=== PATIENT | male | born 1960 | race Caucasian/White ===

== ENCOUNTER 2016-07-14 16:12 | Emergency (ER) | payer OTHER ==
[2016-07-14 16:30] VITALS: BP 155/90; PULSE 77; RESP 14; TEMP 98.4; O2SAT 95
--- NOTE | 2016-07-14 16:50 | EDPHY ---
H & P Stated Complaint: blood clot HPI/ROS: CHIEF COMPLAINT: leg pain, DVT HISTORY OF PRESENT ILLNESS: patient complains of being diagnosed with a DVT earlier today. He says he has had pain behind the right knee for 3-5 days. It was mild to moderate 1st. Has minimally increased, but he had moderate increase in the swelling of the leg. The swelling is most of the entire leg. Minimal erythema. No fever. No chest pain of any kind at any point. No shortness of breath of any kind at any point. No recent trauma, travel or surgery. He does have 2 family members have been diagnosed with factor 5 Leiden. He has never been worked up for this. Has no other associated complaints or modifying factors. He went to his orthopedist today and they ordered an ultrasound outpatient. He was contacted by the imaging center as a positive DVT result. He contact his primary care physician and they referred him to the emergency department. REVIEW OF SYSTEMS: Ten systems reviewed and are negative unless otherwise noted in the HPI EXAMINATION General Appearance: Alert, no distress Head: normocephalic, atraumatic Eyes: Pupils equal and round, no conjunctival pallor or injection Neck: Normal inspection, supple, non-tender Respiratory: Lungs are clear to auscultation . No wheezing, rhonchi or crackles. Cardiovascular: Regular rate and rhythm . No murmur. Pulses intact distally. Symmetric radial, DP and PT pulses all 2+. Neurological: A&O, nonfocal, normal gait Skin: Warm and dry, no rash Extremities: Tenderness to palpation of the right calf and popliteal space. There is edema to the right leg that is nonpitting. No palpable cords. Range of motion is fully intact. No pain with passive flexion of the right foot. Neurovascularly intact distal to the pain in the right popliteal fossa. Psychiatric: Mood and affect normal DIFFERENTIAL DIAGNOSES: Including but not limited to Acute DVT, DVT, chronic DVT, Haas cyst MDM: 4:40 p.m. acute DVT in the right lower extremity involving the formal, popliteal, posterior tibial and peroneal veins. He is neurovascular intact distally. Pain is minimal. Otherwise very healthy and active patient. I discussed the case with the physician on-call for his primary care physician. Dr. Plummer recommends that we start him on Xarelto, and that the office will contact him tomorrow for close monitoring. He has no chest pain or shortness of breath. No hypoxia. Patient does have a family history of factor 5 Leiden, and he is instructed to discuss this workup with his primary care physician. 4:50 p.m. I have discussed this plan with the patient. He is to be discharged home after the 1st dose of Xarelto here. He will have a prescription for the 1st 21 days at 15 mg dosing. He is to receive the remaining prescription from his primary care physician should they Choose to continue Xarelto. He is to return to the ER for any chest pain of any kind, any shortness of breath or difficulty breathing. Patient is comfortable this plan and he will be discharged home in stable condition after verification of his labs and 1st dose of Xarelto. SUPERVISION: Patient was evaluated in conjunction with the supervising physician. Please see their note for details. Source: Patient Exam Limitations: No limitations - Personal History Current Tetanus Diphtheria and Acellular Pertussis (TDAP): Yes - Medical/Surgical History Hx Asthma: No Hx Chronic Respiratory Disease: No Hx Diabetes: No Hx Cardiac Disease: No Hx Renal Disease: No Hx Cirrhosis: No Hx Alcoholism: No Hx HIV/AIDS: No Hx Splenectomy or Spleen Trauma: No Other PMH: pt saw his physician for knee pain, sent to imaging, dx with blood clot - Social History Smoking Status: Never smoked Constitutional: Initial Vital Signs Temperature (C) 98.4 F 07/14/16 16:27 Heart Rate 77 07/14/16 16:27 Respiratory Rate 14 07/14/16 16:27 Blood Pressure 155/90 H 07/14/16 16:27 O2 Sat (%) 95 07/14/16 16:27 O2 Delivery Mode Room Air Allergies/Adverse Reactions: No Known Allergies Allergy (Verified 07/14/16 16:30) Home Medications: Medication Instructions Recorded LORazepam [Ativan] 1 mg PO Q12PRN PRN #15 tab 08/28/09 Nexium 08/28/09 Paxil 08/28/09 Rivaroxaban [Xarelto 15mg (*)] 15 mg PO BID #41 tab 07/14/16 Departure - Departure Disposition: Home, Routine, Self-Care Clinical Impression: Deep venous thrombosis (DVT) of right peroneal vein Deep vein thrombosis (DVT) of popliteal vein of right lower extremity Qualifiers: Chronicity: acute Qualified Code(s): I82.431 - Acute embolism and thrombosis of right popliteal vein Deep vein thrombosis (DVT) of femoral vein of right lower extremity Qualifiers: Chronicity: acute Qualified Code(s): I82.411 - Acute embolism and thrombosis of right femoral vein Condition: Good Instructions: Deep Venous Thrombosis (ED) Additional Instructions: Follow up with primary care physician as discussed. Return to the ER for any chest pain of any kind. Return to ER for shortness of breath or difficulty breathing. Avoid high-risk activities that would result in fall or head injury. Referrals: Terrence Sterling MD [Primary Care Provider] - As per Instructions Prescriptions: Rivaroxaban [Xarelto 15mg (*)] 15 mg PO BID #41 tab
[2016-07-14 16:53] LABS: % IMMATURE GRANULYOCYTES 0.4 % (0.0-1.1); ABSOLUTE IMMATURE GRANULOCYTES 0.03 10^3/uL (0.00-0.10); ADD DIFF? NO; ADD MORPH? NO; ADD SCAN? NO; ATYPICAL LYMPHOCYTE FLAG 0 (0-99); FRAGMENT RBC FLAG 0 (0-99); HEMOGLOBIN 15.4 g/dL (13.7-17.5); LEFT SHIFT FLG 0 (0-99); LIPEMIA HEMOLYSIS FLAG 90 (0-99); MEAN CELL HEMOGLOBIN 30.7 pg (27.9-34.1); MEAN CELL VOLUME 87.8 fL (81.5-99.8); MEAN PLATELET VOLUME 8.8 fL (8.7-11.7); PLATELET CLUMPS FLAG 0 (0-99); PLATELET COUNT 145 10^3/uL (150-400); RED BLOOD CELL COUNT 5.01 10^6/uL (4.40-6.38); RED CELL DISTRIBUTION WIDTH 12.3 % (11.5-15.2)
[2016-07-14 17:03] LABS: INR 0.99 (0.83-1.16)
[2016-07-14 17:04] LABS: APTT 24.6 SEC (23.0-38.0)
[2016-07-14 17:08] LABS: ANION GAP 12 mEq/L (8-16); CALCIUM 9.7 mg/dL (8.5-10.4); CARBON DIOXIDE 24 mEq/l (22-31); CHLORIDE 105 mEq/L (97-110); GLOMERULAR FILTRATION RATE > 60; GLUCOSE 98 mg/dL (70-100); POTASSIUM 4.5 mEq/L (3.5-5.2); SODIUM 141 mEq/L (134-144)
[2016-07-14] MEDS ORDERED: RIVAROXABAN 15 MG TAB PO SCH ×2 (18:00)
== END 2016-07-14 18:00 | disposition home or self-care (01) ==
DX: I82.431 Acute embolism and thrombosis of right popliteal vein (principal); I82.441 Acute embolism and thrombosis of right tibial vein; I82.411 Acute embolism and thrombosis of right femoral vein; Z79.01 Long term (current) use of anticoagulants